=== PATIENT | female | born 1960 | race Caucasian/White ===

== ENCOUNTER → 2019-03-21 14:54 | Outpatient (CLI) | payer OTHER, MEDICAID, SELFPAY ==
--- NOTE | 2019-03-21 | DI.MG.S_ITS ---
BILATERAL DIGITAL SCREENING MAMMOGRAM 3D/2D WITH CAD: 03/21/2019 CLINICAL: Routine screening. Family history of breast cancer. Comparison is made to exams dated: 12/21/2017 mammogram, 11/03/2016 mammogram, and 11/02/2015 mammogram - Located [facility]. There are scattered fibroglandular elements in both breasts. Current study was also evaluated with a Computer Aided Detection (CAD) system. No significant masses, calcifications, or other findings are seen in either breast. There has been no significant interval change. IMPRESSION: NEGATIVE There is no mammographic evidence of malignancy. A 1 year screening mammogram is recommended. This exam was interpreted at Station ID: [id number]. NOTE: For mammograms, a report in lay terms will be sent to the patient. Approximately 15% of breast malignancies will not be visualized mammographically. In the management of a palpable breast mass, a negative mammogram must not discourage biopsy of a clinically suspicious lesion. Electronically Signed By: Jimmy barry/isaiah:03/21/2019 16:56:21 letter sent: Normal Exam ACR BI-RADS Category 1: Negative 3341F
== END ==
PROVIDERS: PCP Nurse Practitioner Family; Visit Provider Nurse Practitioner Family
DX: Z12.31 Encounter for screening mammogram for malignant neoplasm of breast (principal); Z80.3 Family history of malignant neoplasm of breast
CPT/HCPCS: 77063; 77067

== ENCOUNTER → 2020-12-03 10:57 | Outpatient (CLI) | payer OTHER, MEDICAID, SELFPAY ==
--- NOTE | 2020-12-03 | DI.MG.S_ITS ---
BILATERAL DIGITAL SCREENING MAMMOGRAM 3D/2D WITH CAD: 12/03/2020 CLINICAL: Routine screening. Family history of breast cancer. Comparison is made to exams dated: 03/21/2019 mammogram, 12/21/2017 mammogram, and 11/03/2016 mammogram - [facility]. There are scattered fibroglandular elements in both breasts. Current study was also evaluated with a Computer Aided Detection (CAD) system. No significant masses, calcifications, or other findings are seen in either breast. There has been no significant interval change. IMPRESSION: NEGATIVE There is no mammographic evidence of malignancy. A 1 year screening mammogram is recommended. This exam was interpreted at Station ID: [id number]. NOTE: For mammograms, a report in lay terms will be sent to the patient. Approximately 15% of breast malignancies will not be visualized mammographically. In the management of a palpable breast mass, a negative mammogram must not discourage biopsy of a clinically suspicious lesion. Electronically Signed By: Chin walker/isaiah:12/03/2020 16:34:35 letter sent: Normal Exam ACR BI-RADS Category 1: Negative 3341F
--- NOTE | 2020-12-03 | DI.US.S_ITS ---
PROCEDURE: US PELVIC COMPLETE INDICATIONS: RLQ pain TECHNIQUE: Real-time scanning was performed of the pelvic organs, with image documentation. Additional endovaginal scanning was necessary due to incomplete visualization of the adnexal and endometrial structures by transabdominal scanning. COMPARISON: [facility], CT, ABDOMEN/PELVIS WITH CONTRAST, 11/02/2017, 9:46. [facility], US, PELVIC COMPLETE, 09/29/2007, 9:08. FINDINGS: Transabdominal scanning: Limited scanning through the kidneys shows no hydronephrosis. No pathologic free abdominal or pelvic fluid. Endovaginal scanning: Uterus: Uterus is normal in size at 8.3 x 4.3 x 4.9 cm. The endometrium measures 4.0 mm in combined thickness. Ovaries: Right ovary measures 1.7 x 1.4 x 1.3 cm and the left 2.2 x 0.9 x 1.4 cm. Color-flow Doppler demonstrates intrinsic ovarian blood flow bilaterally. IMPRESSION: No source for right lower quadrant pain identified. Dictated by: Arnold Bah [facility] Interpreted: Cruz Cedeno MD on 12/03/2020 at 15:43 Approved by: Cruz Cedeno M.D. on 12/03/2020 at 17:05
== END ==
PROVIDERS: PCP Nurse Practitioner Family; Referring Provider Nurse Practitioner Family; Visit Provider Nurse Practitioner Family
DX: Z12.31 Encounter for screening mammogram for malignant neoplasm of breast (principal); Z80.3 Family history of malignant neoplasm of breast; R10.31 Right lower quadrant pain
CPT/HCPCS: 76856; 77063; 77067

== ENCOUNTER → 2022-04-07 13:21 | Outpatient (CLI) | payer OTHER, MEDICAID, SELFPAY ==
--- NOTE | 2022-04-07 | DI.MG.S_ITS ---
BILATERAL DIGITAL SCREENING MAMMOGRAM 3D/2D WITH CAD: 04/07/2022 CLINICAL: Routine screening. Family history of breast cancer. Comparison is made to exams dated: 12/03/2020 mammogram, 03/21/2019 mammogram, 12/21/2017 mammogram, and 11/03/2016 mammogram - [facility]. There are scattered fibroglandular elements in both breasts. Current study was also evaluated with a Computer Aided Detection (CAD) system. No significant masses, calcifications, or other findings are seen in either breast. There has been no significant interval change. IMPRESSION: NEGATIVE There is no mammographic evidence of malignancy. A 1 year screening mammogram is recommended. This exam was interpreted at Station ID: [id number]. NOTE: For mammograms, a report in lay terms will be sent to the patient. Approximately 15% of breast malignancies will not be visualized mammographically. In the management of a palpable breast mass, a negative mammogram must not discourage biopsy of a clinically suspicious lesion. Electronically Signed By: Jimmy barry/isaiah:04/07/2022 16:13:48 letter sent: Normal Exam ACR BI-RADS Category 1: Negative 3341F
== END ==
PROVIDERS: PCP Nurse Practitioner Family; Referring Provider Nurse Practitioner Family; Visit Provider Nurse Practitioner Family
DX: Z12.31 Encounter for screening mammogram for malignant neoplasm of breast (principal); Z80.3 Family history of malignant neoplasm of breast
CPT/HCPCS: 77063; 77067

== ENCOUNTER 2024-06-19 16:22 | Emergency (ER) | payer MEDICARE, SELFPAY ==
[2024-06-19 16:29] VITALS: BP 182/79; PULSE 78; RESP 16; TEMP 36.4; O2SAT 98; BMI 30.9
--- NOTE | 2024-06-19 16:59 | ED_ITS ---
HPI - Eye Problem <Rajni Ritchie PA-C - Last Filed: 06/19/24 18:16> General Chief complaint: Eye Problems Stated complaint: got liquid in eye, did wash for 15 minutes Time Seen by Provider: 06/19/24 16:55 Source: patient Mode of arrival: Ambulatory History of Present Illness HPI Narrative: This is a 64-year-old woman presenting with right eye irritation and redness since this morning. Patient states she was doing a COVID test and had some of the liquid from the test kit on her hand and touched her eye. She states she had a burning sensation in her eye and flushed it out immediately with some water, she then took a shower and ran water in her eye in the shower. After that she had a squirt syringe made of plastic that she used with tap water to continue to flush her eye out this afternoon. She states her eyes not very painful but is becoming more itchy. She has been dealing with seasonal allergies for the past 2 weeks which is why she took the COVID test just to check. Prior to getting something in her eye she did not have any eye pain or itching. She denies any vision change except she has had a slight amount of increased tears and a few times feels like she has had some mucus production from her eye that has temporarily clotted her vision. She denies headache or any other symptoms or concerns. Related Data Home Medications Medication Instructions Recorded Confirmed [COENZYME Q 10] ##0 02/20/17 aspirin 81 mg chewable tablet 81 mg PO QDAY ##0 02/20/17 cholecalciferol (vitamin D3) 25 1,000 unit PO QDAY ##0 02/20/17 mcg (1,000 unit) tablet (Vitamin D3) multivitamin (Multiple Vitamins 1 tab PO QDAY ##0 02/20/17 tablet) Previous Rx's Medication Instructions Recorded clobetasol 0.05 % topical ointment 1 apple topical SEE INSTRUCTIONS ##30 10/10/16 estradiol 0.01% (0.1 mg/gram) 0 vaginal SEE INSTRUCTIONS #1 tube 11/19/16 vaginal cream (Estrace) triamcinolone acetonide 0.1 % 0 gm topical BID ##80 02/20/17 topical ointment alprazolam 0.25 mg tablet 0 mg (0 x 0.25 mg) PO QDAY #30 tabs 07/02/17 erythromycin 5 mg/gram (0.5 %) eye 1 cm EYE-LEFT Q8H 7 days #3.5 grams 06/19/24 ointment Allergies Allergy/AdvReac Type Severity Reaction Status Date / Time sulfamethoxazole Allergy Intermediate rash Unverified 03/03/18 13:06 [From ] trimethoprim [From ] Allergy Intermediate rash Unverified 03/03/18 13:06 Review of Systems <Rajni Ritchie PA-C - Last Filed: 06/19/24 18:16> Review of Systems Narrative: See HPI Patient History <Rajni Ritchie PA-C - Last Filed: 06/19/24 18:16> Surgical History Status post delivery History of tonsillectomy Family History Mother Age: 77 Cancer Diabetes mellitus Stroke Social History Smoking Status: Former smoker Smoking Status: Former smoker alcohol intake frequency: 0-2 drinks per day Substance Use Type: does not use Exam <Rajni Ritchie PA-C - Last Filed: 06/19/24 18:16> Narrative Exam Narrative: GENERAL: [64] year old patient appears stated age. Well-developed patient, in mild distress. HEAD: Atraumatic. Normocephalic. EYES: Pupils equal round and reactive. Extraocular motions intact. No scleral icterus. No injection or drainage. Right eye is erythematous, slightly dry appearing, making tears. EOMs intact and pain-free. Fluorescein exam reveals no uptake no corneal abrasion. PH is 7-8 with pH strip ENT: Nose without bleeding, purulent drainage. Throat without erythema, tonsillar hypertrophy or exudate. Airway patent. CARDIOVASCULAR: Regular rate and rhythm without murmurs, gallops, or rubs. RESPIRATORY: No increased work of breathing or respiratory distress EXTREMITIES: No edema or joint tenderness. NEURO: AOx3. SKIN: No rash or erythema of visible areas Initial Vital Signs Initial Vital Signs: Vital Signs Temperature 97.6 F 06/19/24 16:29 Pulse Rate 78 06/19/24 16:29 Respiratory Rate 16 06/19/24 16:29 Blood Pressure 182/79 H 06/19/24 16:29 Pulse Oximetry 98 06/19/24 16:29 Oxygen Delivery Method Room Air 06/19/24 16:29 <Marina Lechuga DO - Last Filed: 06/21/24 18:19> Initial Vital Signs Initial Vital Signs: Vital Signs Temperature 97.6 F 06/19/24 16:29 Pulse Rate 78 06/19/24 16:29 Respiratory Rate 16 06/19/24 16:29 Blood Pressure 182/79 H 06/19/24 16:29 Pulse Oximetry 98 06/19/24 16:29 Oxygen Delivery Method Room Air 06/19/24 16:29 Course <Rajni Ritchie PA-C - Last Filed: 06/19/24 18:16> Orders Ordered: Discontinued Medications Fluorescein Sodium (Fluorescein 1 Mg Strip) 1 mg EYE-BOTH NOW ONE Stop: 06/19/24 17:00 Last Admin: 06/19/24 17:07 Dose: 1 mg Documented By: FRANCES Proparacaine HCl (Proparacaine 0.5% Ophth Ermelinda) 1 drops EYE-BOTH NOW ONE Stop: 06/19/24 17:00 Last Admin: 06/19/24 17:06 Dose: 1 drop Documented By: FRANCES Vital Signs Vital signs: Vital Signs - 8 hr 06/19/24 16:29 Temperature 97.6 F Pulse Rate 78 Respiratory Rate 16 Blood Pressure 182/79 H Pulse Oximetry 98 Oxygen Delivery Method Room Air <Marina Lechuga DO - Last Filed: 06/21/24 18:19> Orders Ordered: Discontinued Medications Fluorescein Sodium (Fluorescein 1 Mg Strip) 1 mg EYE-BOTH NOW ONE Stop: 06/19/24 17:00 Last Admin: 06/19/24 17:07 Dose: 1 mg Documented By: FRANCES Proparacaine HCl (Proparacaine 0.5% Ophth Ermelinda) 1 drops EYE-BOTH NOW ONE Stop: 06/19/24 17:00 Last Admin: 06/19/24 17:06 Dose: 1 drop Documented By: FRANCES Vital Signs Vital signs: Vital Signs - 8 hr 06/19/24 16:29 Temperature 97.6 F Pulse Rate 78 Respiratory Rate 16 Blood Pressure 182/79 H Pulse Oximetry 98 Oxygen Delivery Method Room Air MDM - Eye Problem <Rajni Ritchie PA-C - Last Filed: 06/19/24 18:16> Differential Diagnosis Differential diagnosis: Likely corneal abrasion, conjunctivitis and other (Chemical eye irritation) MDM Narrative Medical decision making narrative: This is a well-appearing 64-year-old woman presenting with concern for right eye irritation itching and redness since this morning when she thinks she rubbed some chemical from a COVID test get in her eye. She has flushed it extensively today in the shower and after showering with a plastic syringe. She has not had vision changes, exam with fluorescein reveals no uptake. PH is 7 with the pH strep. Patient was advised to use artificial tears in her eye, also prescription for topical antibiotics given the extensive irritation to her eye today and some suspicion this could potentially be a simultaneous bacterial conjunctivitis developing in the context of getting some liquid from a COVID test kit in her eye. She is advised to seek re-evaluation or follow up with Ophthalmology if she is not improving. Or if she is worsening. Return precautions provided, follow-up plan discussed, all questions answered. Discharge Plan Departure Patient Disposition: Home Clinical Impression: Eye irritation Activity Restrictions/Additional Instructions: *You have been diagnosed with [eye irritation, possibly due to chemical versus I infection conjunctivitis] *What to do: *Please continue to take your regular medications as directed. [1 ] New medication prescriptions sent to your pharmacy: [Erythromycin] [ ] New medication written as a paper prescription [ ] No new medications given *Please follow up with your primary care provider in 2-3 days, call for an appointment. Let them know you were seen in the Emergency Department and that we ask that you be seen in follow up. We will electronically transmit a record of today's note if your PCP is in our system. You came in today with concern for getting some chemical from a COVID test in your eye, I think this may have irritated her eye but also the additional flushing it did with tap water today probably irritated it more and dried it out some. Your PH in her eye was normal today. Your fluorescein exam also looked good no evidence of corneal injury. It is still possible you have some chemical irritation from what happened this morning, I recommend use artificial tears/eye drops over the next few days to help moisten her eye. Also you see topical antibiotics as prescribed. If you have worsening symptoms, pain increasing itching or vision change please make sure you seek immediate re-evaluation. I hope you feel better soon. *If you do not have a primary care provider please contact the [facility] Resource line at [phone]. They will ask some questions about your medical history and help get you set up with a doctor in the community. *Return to Emergency Department if you should have any new, worsening or concerning symptoms, such as [fever greater than 101 F, shaking chills, worsening pain, persistent vomiting or other bothersome symptoms] Prescriptions: New erythromycin 5 mg/gram (0.5 %) ointment 1 cm EYE-LEFT Q8H 7 Days Qty: 3.5 0RF No Action clobetasol 0.05 % ointment 1 apple Topical SEE INSTRUCTIONS Qty: 30 5RF estradiol [Estrace] 0.01 % cream 0 Vaginal SEE INSTRUCTIONS Qty: 1 1RF [COENZYME Q 10] Qty: 0 multivitamin [Multiple Vitamins] 1 EACH tablet 1 tab PO QDAY Qty: 0 aspirin 81 MG tablet,chewable 81 mg PO QDAY Qty: 0 cholecalciferol (vitamin D3) [Vitamin D3] 1,000 UNIT tablet 1,000 unit PO QDAY Qty: 0 triamcinolone acetonide 0.1 % ointment 0 gm Topical BID Qty: 80 1RF alprazolam 0.25 MG tablet 0 mg PO QDAY Qty: 30 0RF Referrals: Evy Melendez ARNP [Primary Care Provider] - Stand Alone Forms: Patient Portal/API ED Sign-out <Marina Lechuga DO - Last Filed: 06/21/24 18:19> Cosign ED Attending Lisbeth Attestation: I was immediately available in the department for consultation.
[2024-06-19] MEDS: PROPARACAINE 0.5% OPHTH SOL 1 DROPS EYE-BOTH (17:06)
[2024-06-19] MEDS: FLUORESCEIN 1 MG STRIP EYE-BOTH (17:07)
[2024-06-19 18:17] VITALS: BP 184/84; PULSE 84; RESP 14; O2SAT 98
== END 2024-06-19 18:20 | disposition home or self-care (01) ==
PROVIDERS: Emergency Provider Student in an Organized Health Care Education/Training Program; PCP Nurse Practitioner Family
DX: H57.11 Ocular pain, right eye (principal)
CPT/HCPCS: 99282; 99283

== ENCOUNTER → 2025-08-28 | Outpatient (CLI) | payer MEDICARE, SELFPAY ==
--- NOTE | 2025-08-28 09:41 | DI.MG.S_ITS ---
MM diagnostic mammo unilat RT, US breast RT limited: 08/28/2025 BI-RADS: 3 CLINICAL: 65-year old female for right diagnostic mammogram and right diagnostic breast ultrasound that is a recall from screening on 07/20/2025. Tyrer-Cuzick lifetime risk of 7.2%. Current reported family history of breast cancer: mother. History of ovarian cancer in one first-degree relative. PRIOR EXAMS 07/20/2025, 06/23/2024, 06/17/2023, 04/07/2022, 12/03/2020. MAMMOGRAPHY TECHNIQUE: 2D and 3D (tomosynthesis) digital mammographic views obtained, with additional images as needed for full coverage. Current study was also evaluated with a Computer Aided Detection (CAD) system. ULTRASOUND TECHNIQUE: Real-time shearer scale and color doppler imaging of the area of clinical interest was performed with image documentation. TARGETED Right Breast Ultrasound: Real-time ultrasound exam was performed focused to area of clinical and/or imaging concern. DENSITY Right: B. There are scattered areas of fibroglandular density. MAMMOGRAPHY FINDINGS Right (finding-1): MLO only, Central, Anterior depth, measuring 0.8cm. Previous report: MLO only, Upper: Correlating with findings on screening mammogram, there is an asymmetry seen only on one view. The asymmetry is lobulated and equal density. This was likely present on prior mammogram 06/17/2023, but appears slightly more prominent on the current exam. ULTRASOUND FINDINGS Right (finding-1): Outer at 9:00, 2 cm from nipple, measuring 0.7 x 0.3 x 0.6 cm: There is a dilated duct containing echogenic material. Doppler shows no vascularity. This may correlate with the mammographic finding. Right: Outer at 9:00, 3 cm from nipple, measuring 0.5 x 0.5 x 0.8 cm: There is an intramammary lymph node. This is an incidental finding. IMPRESSION: Right (Duct): Outer at 9:00, 2 cm from nipple, measuring 0.7 x 0.3 x 0.6 cm * Probably Benign. RECOMMENDATIONS Right: Outer at 9:00, 2 cm from nipple * Six month followup with diagnostic ultrasound and diagnostic mammography. COMMENTS: Findings and recommendations were conveyed to the patient during today's evaluation. OVERALL ASSESSMENT CATEGORY BI-RADS-3: Probably Benign. ELECTRONICALLY SIGNED: Katie Dunn M.D. on 08/28/2025 at 03:27:47 PM PT Interpreting Station ID: [id number]
== END ==
PROVIDERS: PCP Nurse Practitioner Family; Referring Provider Nurse Practitioner Family; Visit Provider Nurse Practitioner
DX: R92.8 Other abnormal and inconclusive findings on diagnostic imaging of breast (principal); N64.89 Other specified disorders of breast; N60.41 Mammary duct ectasia of right breast; R92.321 Mammographic fibroglandular density, right breast; Z80.3 Family history of malignant neoplasm of breast; Z80.41 Family history of malignant neoplasm of ovary
CPT/HCPCS: 76642; 77065; G0279